=== PATIENT | female | born 1955 | race Caucasian/White ===

== ENCOUNTER 2018-06-15 08:22 | Day surgery (SDC) | payer BC ==
[2018-06-15] MEDS ORDERED: MIDAZOLAM 1 MG/ML 2 ML INJ (10:31)
[2018-06-15] MEDS ORDERED: FENTAnyl 50 MCG/ML VIAL (10:32)
== END 2018-06-15 15:39 | disposition home or self-care (01) ==
LOC: GIL 08:22
DX: Z12.11 Encounter for screening for malignant neoplasm of colon (principal); K64.8 Other hemorrhoids
CPT/HCPCS: 45378